=== PATIENT | female | born 1970 | race Caucasian/White ===

== ENCOUNTER 2019-12-08 01:17 | Day surgery (SDC) | payer OTHER, SELFPAY ==
[2019-11-23 10:09] VITALS: BMI 27.3
[2019-12-08] VITALS (8 sets, daily range): BP systolic 115–137; BP diastolic 65–80; PULSE 74–100; RESP 12–20; TEMP 35.9–37.1; O2SAT 93–99
[2019-12-08] MEDS: LACTATED RINGERS 1,000 ML 30 ML IV CONT ×2 (06:20→10:40)
[2019-12-08 06:25] LABS: Urine Cotinine NEGATIVE
--- NOTE | 2019-12-08 06:37 | WPDANESEPPF ---
Anes - Initial Pre Proc Eval Procedure: Operation Date: 12/08/19 07:30 Proposed Procedures p Bilateral Breast Mastopexy with Galaflex - Norm Villarreal MD Date/Time: 12/08/19 06:37 Surgeon: Norm Villarreal MD Pre Op Diagnosis: breast ptosis Patient Data Age: 49 Gender: F Height: 5 ft 4 in Weight: 72.2 kg Allergies Allergy/AdvReac Type Severity Reaction Status Date / Time No Known Allergies Allergy Unverified 11/23/19 10:02 Home Medications Medication Instructions Recorded Confirmed Type eszopiclone 2 mg PO HS PRN 11/23/19 11/23/19 History sertraline 50 mg PO DAILY 11/23/19 11/23/19 History hydrocodone 5 mg-acetaminophen 325 1 tablet PO Q6H PRN #15 tablet 11/25/19 11/25/19 Rx mg tablet Laboratory Tests 12/08/19 06:09 Cotinine Negative Patient hx anesthesia problems: none Family hx anesthesia problems: none FOR[facility], [facility] Past Medical History Medical History (Updated 12/08/19 @ 06:37 by Pankaj Carmona MD) Anxiety Social History Social History Smoking status: Former smoker Tobacco type: cigarettes Alcohol intake: current Gender identity (if verbalized by the patient): Female Anes - Eval Final PreProcedure Day of Procedure 12/08/19 06:37 Patient weight: overweight Lungs: clear to auscultation Airway: Mallampati scale class II Neurological: alert and oriented Last oral intake: >/= 8 hours ASA classification: II Emergent: no Anesthetic plan: proceed Anesthesia type and monitoring: general LMA and standard monitoring Informed Consent: The patient's anesthetic plan and its attendant risks and benefits were discussed with the patient/family/POA. Questions were solicited and answers provided to the satisfaction of the patient/family/POA.
--- NOTE | 2019-12-08 07:11 | WPDHPUPDATE1 ---
History and Physical Update Update Date/Time: 12/08/19 07:11 History and Physical has been reviewed, including an updated exam of the patient. There are NO changes in the patient's condition. Risks, benefits, and alternatives have been discussed and questions answered. Patient agrees to proceed with procedure.
[2019-12-08] MEDS: ceFAZolin 2 GM/D5W 50 ML 2 GM/50 ML BAG IVPB (07:34)
[2019-12-08] MEDS: LIDO 1%/EPINEPHRINE 1:100,000 20 ML VIAL 80 ML INFILTRATE (08:08)
--- NOTE | 2019-12-08 10:59 | P.OP_ITS ---
Procedure Note - Detailed Date of procedure: 12/08/19 Pre-op diagnosis: breast ptosis Post-op diagnosis: same Procedure performed: Bilateral mastopexy with gallaflex Description of procedure: Patient was marked in the preoperative holding area with her verification. We had a lengthy discussion about risks involved as well as realistic expectations. Made sure answered all of her questions to her satisfaction and consent obtained. She was taken to the operating room placed supine on the operating room table. Anesthesia provided by anesthesiology and prepped and draped in a standard sterile fashion. 1% lidocaine and 0.25% Marcaine with epinephrine was used to provide a field block. I tailor tacked the breast into position. Placed her in a sitting position. I marked out the nipple-areolar complex based on my preoperative measurements observations as well as intraoperative measurements and observations which were in full agreement. She was placed supine. I then de-epithelialized a superior pedicle. I incised along the skin flap margin and elevated with more than 2 cm of thickness down to the chest wall. I did remove the central keel between the pillars. I copiously irrigated with saline solution and verified a strict hemostasis. I then soaked the galaflex in triple antibiotic and Betadine solution. It had soak wall were doing the procedure. This was placed in the breast pocket. I sutured to the chest wall with a 2-0 Vicryl. The pillars were reapproximated with 2-0 Vicryl as well as along the IMF. I then closed with 3-0 strata fix along the IMF and 3-0 Monocryl on the vertical and around the areola and then ran everything with 4-0 Monocryl. I placed in a sitting position at the end of the procedure to verify good symmetry. Steri- Strips were placed. Fluffs surgical bra are placed. Patient was woken taken the PACU without difficulty. All instrument sponge counts were correct at the end of the case. Anesthesia: GLMA Surgeon: Norm Villarreal MD Drains: No Packing: No Pathology: none sent Complications: No immediate complications Condition: stable Disposition: PACU Findings: Superior pedicle mastopexy with galaflex.
== END 2019-12-08 12:30 | disposition home or self-care (01) ==
PROVIDERS: PCP Internal Medicine; Visit Provider Surgery Plastic and Reconstructive Surgery
PROC: (CPT 19316; principal; 2019-12-08 07:30)
DX: Z41.1 Encounter for cosmetic surgery (principal); N64.81 Ptosis of breast; F41.9 Anxiety disorder, unspecified; Z87.891 Personal history of nicotine dependence
CPT/HCPCS: 19316; 15777 ×2; 36415; 80307; A9270; J0131; J0690; J1100; J1170; J1580; J2250; J2405; J2704; J3010; J7120